=== PATIENT | male | born 1970 | race Caucasian/White ===

== ENCOUNTER → 2016-08-31 | Outpatient (CLI) | payer BC ==
--- NOTE | 2016-08-31 10:17 | RADRPT ---
PROCEDURE: XR right knee. CLINICAL INDICATION: Knee pain TECHNIQUE: AP weightbearing, PA weightbearing, lateral weightbearing and sunrise views are availab le for review. COMPARISON: 07/24/2013 FINDINGS: There is mild narrowing of the medial tibial femoral compartment. The osseous structures are otherwi se normal in mineralization, architecture and alignment. No fractures are identified. No osseous l esions are identified. The soft tissues are unremarkable. IMPRESSION: Mild narrowing of the medial tibial femoral compartment (query osteoarthrosis) RPTAT: [facility] .Toby Rivera MD, MD Date Time Electronically viewed and signed by .Toby Rivera MD, on 08/31/2016 10:16 .B/
== END | disposition home or self-care (01) ==
LOC: HKI 09:02
PROVIDERS: ATTEND Orthopaedic Surgery
DX: M76.31 Iliotibial band syndrome, right leg (principal); M25.561 Pain in right knee
CPT/HCPCS: 73564; G0463